=== PATIENT | female | born 1955 | race Two or more races ===

== ENCOUNTER 2021-03-21 00:46 | Emergency (ER) | payer MEDICARE, OTHER ==
[~2021-03-21] VITALS: Ht 162.6 cm; Wt 86.2 kg
[2021-03-21 00:46] VITALS: BP 145/85
[2021-03-21] MEDS ORDERED: IBUPROFEN 800 MG TAB PO ONE (04:30)
[2021-03-21] MEDS ORDERED: ACETAMINOPHEN 500 MG TAB PO ONE (04:30)
== END 2021-03-21 05:32 | disposition home or self-care (01) ==
LOC: EDBD 00:46 → ER 00:51
DX: S13.9XXA Sprain of joints and ligaments of unspecified parts of neck, initial encounter (principal); M62.838 Other muscle spasm; R51.9 Headache, unspecified; E66.9 Obesity, unspecified; Z68.34 Body mass index [BMI] 34.0-34.9, adult; W18.39XA Other fall on same level, initial encounter; Y93.89 Activity, other specified; Y92.89 Other specified places as the place of occurrence of the external cause; Y99.8 Other external cause status
CPT/HCPCS: 70450; 72125